=== PATIENT | female | born 1930 | race Caucasian/White ===

== ENCOUNTER 2016-10-05 21:17 | Emergency (ER) | payer OTHER ==
[2016-10-05 21:23] VITALS: RESP 18
[2016-10-05] MEDS ORDERED: SILVER NITRATE APPLICATOR 1 APPL TP ONE ×4 (21:27→22:19)
[2016-10-05] MEDS ORDERED: OXYMETAZOLINE 30 ML NASAL SPRAY ONE (21:27)
--- NOTE | 2016-10-05 21:56 | EDPHY ---
H & P Stated Complaint: epistaxis Time Seen by Provider: 10/05/16 21:30 HPI/ROS: Chief Complaint: Nosebleed HPI: 86-year-old female with a sudden onset of epistaxis from her right nostril at about 830 this evening. Does not have a history of epistaxis in the past except this child. He is not on any blood thinning medications in effects takes no medications. No nasal trauma or injuries foreign bodies. No fevers or chills. No cough. No headaches. She did get the bleeding to stop when she packed herself with some tissue but when she removed it cause cannot this started bleeding again. ROS: 10 point Review of Systems is negative except as noted in the HPI. PMH: None Medications: None Allergies: No known drug allergies Social History: No smoking, no alcohol, no recreational drug use Family History: non-contributory Physical Exam: General: Awake, alert, no acute distress HEENT: Nose: She has got a steady who is from her right near which appears to be anterior. There is also some blood noted in the right lacrimal duct with some blood from her right eye. There is no deformity noted. Neck: Supple full range of motion Chest: No respiratory distress Heart: Normal pulses Skin: No rash, well perfused Neuro: Cranial nerves 2-12 intact, strength is 5 in 5 in bilateral upper lower extremities. - Personal History Current Tetanus/Diphtheria Vaccine: Yes Current Tetanus Diphtheria and Acellular Pertussis (TDAP): Yes Tetanus Vaccine Date: 2014 - Medical/Surgical History Hx Asthma: No Hx Chronic Respiratory Disease: No Hx Diabetes: No Hx Cardiac Disease: Yes Hx Renal Disease: No Hx Cirrhosis: No Hx Alcoholism: No Hx HIV/AIDS: No Hx Splenectomy or Spleen Trauma: No Other PMH: hypothyroidim, HTN, AFib, tonsillectomy, appendectomy, cataract surgery 2012 - Social History Smoking Status: Never smoked Constitutional: Initial Vital Signs Heart Rate 84 10/05/16 21:20 Respiratory Rate 18 10/05/16 21:20 Blood Pressure 142/84 H 10/05/16 21:20 O2 Sat (%) 97 10/05/16 21:20 O2 Delivery Mode Room Air Allergies/Adverse Reactions: No Known Allergies Allergy (Verified 10/05/16 21:19) Home Medications: Medication Instructions Recorded Herbals/Supplements -Info Only 1 each PO AD 10/23/12 Departure - Departure Disposition: Home, Routine, Self-Care Condition: Good Instructions: Nosebleed (ED) Additional Instructions: Follow up with Ear Nose and Throat doctor in 2 days for re-evaluation. Return emergency department for return of bleeding, headache, fevers, chills, nausea, vomiting, fainting, or any other concerns. Referrals: NONE *PRIMARY CARE P,. [Primary Care Provider] - As per Instructions Hira Chauhan MD [Medical Doctor] - As per Instructions
[2016-10-05] MEDS ORDERED: OXYMETAZOLINE 30 ML NASAL SPRAY EACHNARE ONE (22:19)
[2016-10-05 22:38] VITALS: BP 132/85; PULSE 75; O2SAT 95
== END 2016-10-05 22:56 | disposition home or self-care (01) ==
PROC: 095KXZZ Destruction of Nasal Mucosa and Soft Tissue, External Approach (ICD-10-PCS; principal; 2016-10-05)
DX: R04.0 Epistaxis (principal); I10 Essential (primary) hypertension

== ENCOUNTER 2016-11-06 08:29 | Emergency (ER) | payer OTHER ==
[2016-11-06] MEDS ORDERED: OXYMETAZOLINE 30 ML NASAL SPRAY EACHNARE ONE (08:42)
[2016-11-06] MEDS ORDERED: LIDOCAINE HCL 4% TOPICAL SOLN 50ML TP ONE (08:42)
[2016-11-06] MEDS ORDERED: SILVER NITRATE APPLICATOR 1 APPL TP ONE (08:42)
--- NOTE | 2016-11-06 08:44 | EDPHY ---
H & P Stated Complaint: nose bleed Time Seen by Provider: 11/06/16 08:31 HPI/ROS: CHIEF COMPLAINT: Epistaxis HISTORY OF PRESENT ILLNESS: The patient presents to the ED with complaints of acute epistaxis which began 2 hours prior to arrival. The patient denies associated lightheadedness, dizziness or anticoagulant use. The patient does have a history of epistaxis requiring treatment with silver nitrate cautery in the ED approximately 1 month ago. The patient denies any additional acute medical complaints. REVIEW OF SYSTEMS: A comprehensive 10 point review of systems is otherwise negative aside from elements mentioned in the history of present illness. Source: Patient Exam Limitations: No limitations - Personal History Current Tetanus/Diphtheria Vaccine: Yes Tetanus Vaccine Date: 2014 - Medical/Surgical History Hx Asthma: No Hx Chronic Respiratory Disease: No Hx Diabetes: No Hx Cardiac Disease: Yes Hx Renal Disease: No Hx Cirrhosis: No Hx Alcoholism: No Hx HIV/AIDS: No Hx Splenectomy or Spleen Trauma: No Other PMH: hypothyroidim, HTN, AFib, tonsillectomy, appendectomy, cataract surgery 2012 - Social History Smoking Status: Never smoked - Physical Exam Exam: General Appearance: Alert, no distress Eyes: Pupils equal and round no pallor or injection ENT, Mouth: Bleeding from the right anterior septum noted Respiratory: There are no retractions, lungs are clear to auscultation Cardiovascular: Regular rate and rhythm Neurological: Alert and oriented, 5/5 strength noted all 4 extremities Skin: Warm and dry, no rashes, no pallor Constitutional: Initial Vital Signs Temperature (C) 38.6 C H 11/06/16 08:29 Heart Rate 88 11/06/16 08:29 Respiratory Rate 16 11/06/16 08:29 Blood Pressure 149/109 H 11/06/16 08:29 O2 Sat (%) 96 11/06/16 08:29 O2 Delivery Mode Room Air Allergies/Adverse Reactions: No Known Allergies Allergy (Verified 10/05/16 21:19) Home Medications: Medication Instructions Recorded Herbals/Supplements -Info Only 1 each PO AD 10/23/12 Medical Decision Making Procedures: Procedure: Epistaxis control. Indication: nosebleed not controlled by direct pressure. Risks, benefits, alternatives discussed with patient and consent obtained. The right nares was anesthetized with lidocaine. The anterior epistaxis was identified. The patient was treated with Afrin spray. Following the procedure the patient was re-examined and the bleeding was well controlled. The patient tolerated the procedure well. The procedure was performed by myself. ED Course/Re-evaluation: The patient came to the ED with a right anterior nosebleed. This was treated successfully with pressure and vaso constriction. The patient was noted to have a fever documented on her triage vital signs however I believe this was error. I rechecked her temperature and found out that it was 36.8 degrees. The patient's blood pressure was slightly elevated at 155/90 discharge. She will follow up with her primary care provider for a blood pressure recheck in the next 1-2 weeks. - Data Points Medications Given: Discontinued Medications Lidocaine HCl (Lidocaine Hcl 4% Topical Solution) 2 ml TP EDNOW ONE Stop: 11/06/16 08:43 Last Admin: 11/06/16 08:58 Dose: 1 btl Oxymetazoline HCl (Afrin Nasal [place]) 2 sprays EACHNARE EDNOW ONE Stop: 11/06/16 08:43 Last Admin: 11/06/16 09:00 Dose: 1 spray Silver Nitrate/Potassium Nitrate (Silver Nitrate Applicator) 3 each TP EDNOW ONE Stop: 11/06/16 08:43 Last Admin: 11/06/16 09:01 Dose: 3 each Departure - Departure Disposition: Home, Routine, Self-Care Clinical Impression: Anterior epistaxis Condition: Good Instructions: Nosebleed (ED), Hypertension (ED) Additional Instructions: 1. Please return to the emergency department for any recurrent bleeding or other concerns. 2. Please follow up with Dr. Jacobo for a blood pressure recheck in the next 1-2 weeks. Referrals: BENJI GAGNON [Primary Care Provider] - As per Instructions
[2016-11-06 09:45] VITALS: BP 155/99; PULSE 71; RESP 14; TEMP 97.7; O2SAT 94
== END 2016-11-06 09:45 | disposition home or self-care (01) ==
DX: R04.0 Epistaxis (principal); I10 Essential (primary) hypertension